=== PATIENT | male | born 1960 | race Caucasian/White ===

== ENCOUNTER → 2016-12-30 | Outpatient (CLI) | payer OTHER ==
[2016-12-30 12:51] LABS: ANION GAP 6 MEQ/L (5-15); AST (GOT) 20 U/L (15-37); BICARBONATE 26.8 MEQ/L (21.0-32.0); BLOOD UREA NITROGEN 16 MG/DL (7-18); CHLORIDE 103 MEQ/L (98-107); GLOMERULAR FILTRATION RATE 75 ML/MIN (>89); GLUCOSE,FASTING 100 MG/DL (74-99); POTASSIUM 4.2 MEQ/L (3.5-5.1); SODIUM (NA) 136 MEQ/L (136-145)
[2016-12-30 12:55] LABS: ALKALINE PHOSPHATASE 76 U/L (45-117); ALT (GPT) 41 U/L (12-78); LDL CHOLESTEROL 111 MG/DL (0-99); TOTAL BILIRUBIN ADULT 0.4 MG/DL (0.2-1.0)
[2016-12-30 18:07] LABS: HEMOGLOBIN A1a 1.2 %; HEMOGLOBIN A1b 1.7 %; HEMOGLOBIN Ao 85.2 %; HEMOGLOBIN P3 3.7 %
== END ==
LOC: OLAB 09:37
PROVIDERS: ATTEND Family Medicine
DX: E78.5 Hyperlipidemia, unspecified (principal); R73.9 Hyperglycemia, unspecified
CPT/HCPCS: 80053; 80061; 83036

== ENCOUNTER → 2017-06-23 | Outpatient (CLI) | payer OTHER ==
[2017-06-23 10:41] LABS: ALBUMIN 4.2 GM/DL (3.4-5.0); ALT (GPT) 37 U/L (12-78); AST (GOT) 18 U/L (15-37); BICARBONATE 24.8 MEQ/L (21.0-32.0); BLOOD UREA NITROGEN 20 MG/DL (7-18); CALCIUM 9.3 MG/DL (8.5-10.1); CHLORIDE 103 MEQ/L (98-107); CHOLESTEROL 169 MG/DL (120-200); CREATININE 1.13 MG/DL (0.60-1.30); GLOMERULAR FILTRATION RATE 67 ML/MIN (>89); GLUCOSE,FASTING 110 MG/DL (74-99); SODIUM (NA) 139 MEQ/L (136-145)
[2017-06-23 10:44] LABS: ALKALINE PHOSPHATASE 79 U/L (45-117); CHOLESTEROL/ HDL RATIO 2.73 RATIO; HDL CHOLESTEROL 61.8 MG/DL (40.0-60.0); LDL CHOLESTEROL 86 MG/DL (0-99); TOTAL BILIRUBIN ADULT 0.3 MG/DL (0.2-1.0); TOTAL PROTEIN 7.5 GM/DL (6.4-8.2); TRIGLYCERIDES 105 MG/DL (42-150)
[2017-06-23 15:55] LABS: HEMOGLOBIN A1C 5.5 % (4.3-6.0)
== END ==
LOC: OLAB 08:21
PROVIDERS: ATTEND Family Medicine
DX: Z00.00 Encounter for general adult medical examination without abnormal findings (principal)
CPT/HCPCS: 36415; 80053; 80061; 83036